=== PATIENT | male | born 1940 | race Caucasian/White ===

== ENCOUNTER 2017-09-04 08:41 | Observation (INO) | payer OTHER ==
[~2017-09-04] VITALS: Ht 180.3 cm; Wt 113.4 kg
[2017-09-04] VITALS (13 sets, daily range): BP systolic 108–153; BP diastolic 78–92
[~2017-09-04 08:41] MED LIST: ALLOPURINOL 10100 M1 PO; ASPIR 8181 MG PO; COZAAR 50 MG TA50 M2 PO; EFFIENT10 MG PO; FLONASE 0.05%50 MCG NASAL; GLUCOTROL5 MG PO; IRON325 PO; JANUVIA25 MG PO; KLOR-CON 1010 MEQ; LASIX 20 MG TAB20 MG PO; LOVASTATIN 20 M20 MG PO; NITROGLYCERIN0.4 MG SUBLING; OMEGA-31000 M1 PO; OMEPRAZOLE20 M2 PO; PLAVIX 75 MG TA75 M1; PROTONIX40 M1 PO; TOPROL XL100 MG PO; VITAMIN B-12500 MCG PO; XANAX 0.25 MG0.25 MG PO; ZANAFLEX4 MG PO
[2017-09-04 09:59] LABS: HEMATOCRIT 39.6 % (42.0-52.0); HEMOGLOBIN 13.6 gm/dL (14.0-18.0); MCHC 34.4 g/dL (28.0-37.0); MCV 87.2 fL (80.0-100.0); MPV 8.2 fl. (7.2-11.1); RBC 4.54 mil/uL (4.50-6.00); RDW-CV 14.8 % (10.5-14.5); WBC 7.3 thou/uL (4.0-11.0)
[2017-09-04 10:05] LABS: ANION GAP 9 mmol/L (7-16); BUN 34 mg/dL (7-18); CALCIUM 8.8 mg/dL (8.5-10.1); CHLORIDE 106 mmol/L (98-107); CO2 27 mmol/L (21-32); CREATININE 2.4 mg/dL (0.6-1.3); GLUCOSE 134 mg/dL (70-99); POTASSIUM 4.4 mmol/L (3.5-5.1); SODIUM 142 mmol/L (136-145)
[2017-09-04 10:06] LABS: APTT 28.7 Seconds (25.0-31.3); INR 1.1; PROTIME 10.9 Seconds (9.20-11.50)
[2017-09-04 10:17] LABS: ALBUMIN 3.8 g/dL (3.4-5.0); ALKALINE PHOSPHATASE 69 U/L (46-116); CHOLESTEROL 148 mg/dL (<200); HDL CHOLESTEROL 51 mg/dL (>40); LDL CHOLESTEROL 81 mg/dL (<100); SGOT 26 U/L (15-37); SGPT 31 U/L (30-65); TC:HDL 2.9 Ratio (Not establshd); TOTAL BILIRUBIN 0.7 mg/dL (<0.1-1.0); TOTAL PROTEIN 7.3 g/dL (6.4-8.2); TRIGLYCERIDE 83 mg/dL (<150); VLDL 17 mg/dL (<40)
[2017-09-04 10:18] LABS: SERUM ASSESSMENT Clear
--- NOTE | 2017-09-04 15:22 | EKG ---
[place] [address] ELECTROCARDIOGRAM REPORT Name: MAX ROSALES Room: [place] [address] ADM IN .R.#: [id number] Admission: 09/04/17 Attend Phys: Denny Terry MD Discharge: Date of : 44 Report #: [id number] THIS REPORT FOR: //name// [facility] Test Date: 2017-09-04 Test Time: 13:51:31 Pat Name: MAX ROSALES Department: Room: [facility] Gender: Retail Operations Specialist: IESHA : 1940 Requested By: Kavon Rea Order Number: [id number] Reading MD: Denny Terry Measurements Intervals [place] Rate: 85 P: -10 VT: 278 QRS: -75 QRSD: 153 T: 8 QT: 396 QTc: 471 Interpretive Statements Sinus rhythm Prolonged VT interval RBBB and LAFB Inferior infarct, old Compared to ECG 01/11/2015 08:44:26 Left anterior fascicular block now present Right bundle-branch block now present Myocardial infarct finding now present Left-axis deviation no longer present Electronically Signed On 09-04-2017 15:22:42 SPRAY DRIER OPERATOR HELPER by Denny Terry [email or web address] <ELECTRONICALLY SIGNED> By: Denny Terry MD, FACC 09/04/17 1522 1351 1351 Denny Terry MD, LOCATED WITHIN [facility] /EPI
--- NOTE | 2017-09-04 15:22 | EKG ---
[place] [address] ELECTROCARDIOGRAM REPORT Name: MAX ROSALES Room: [place] [address] ADM IN .R.#: [id number] Admission: 09/04/17 Attend Phys: Denny Terry MD Discharge: Date of : 44 Report #: [id number] THIS REPORT FOR: //name// [facility] Test Date: 2017-09-04 Test Time: 09:52:14 Pat Name: MAX ROSALES Department: Room: [facility] Gender: Senior Adults Director: : 1940 Requested By: Denny Terry Order Number: [id number] Reading MD: Denny Terry Measurements Intervals [place] Rate: 85 P: 19 ND: 246 QRS: -57 QRSD: 149 T: 3 QT: 399 QTc: 475 Interpretive Statements Sinus rhythm Prolonged ND interval RBBB and LAFB Baseline wander in lead(s) II,III,aVF Compared to ECG 01/11/2015 08:44:26 Left anterior fascicular block now present Right bundle-branch block now present Left-axis deviation no longer present Electronically Signed On 09-04-2017 15:22:11 RAISIN WASHER by Denny Terry [email or web address] <ELECTRONICALLY SIGNED> By: Denny Terry MD, [facility] 09/04/17 1522 0952 Denny Terry MD, [facility] /EPI
--- NOTE | 2017-09-04 16:00 | CARD ---
[address] [address] CARDIAC CATH REPORT Name: NAHUMHAYESMAX GOLDBERG Hans Room: [address] IN [facility]#: [id number] Admission: 09/04/17 Attend Phys: Denny Terry MD Discharge: Date of : 44 Report #: [id number] THIS REPORT FOR: //name// APPROVED REPORT Patient Details Patient Status: Out-Patient Room #: The patient is a 77 year-old male Event Personnel Kavon Rea Quality Rn, Denny Terry Cartographic Designer, Yee Neri RN RN, Gladis Feng RTR Monitor, Carlos Romano (R) Scrub Procedures Performed Art Access - L femoral artery Coronary Angiography Only, ULISES Place w/wo Plasty Single LAD [id number] Hemostasis w/ Angioseal Indication Unstable angina Risk Factors Hypercholesterolemia, Hypertension Previous Procedures/Diagnoses Previous PCI Admission/Lab Medications/Medications given during procedure Aspirin, Platelet Aff. Inhib., Plavix PO 600 mg, Aspirin PO 324 mg; Angiomax bolus and infusion Procedure Narrative The patient was brought electively to the Cardiac Catheterization Laboratory and was prepped and draped in a sterile manner. The left femoral was infiltrated with 1% Lidocaine subcutaneous anesthesia. A 6 Fr. [place] sheath was inserted into the LEFT. Coronary angiography was performed using coronary diagnostic catheters. The right coronary system was accessed and visualized with a 6fr JR4 catheter. The left coronary system was accessed and visualized with a 6Fr. Jl4 catheter. Pre-demployment femoral angiogram was performed . Closure device was deployed with a 6 Fr Angioseal STS 6Fr. The patient tolerated the procedure well and there were no complications associated with the procedure. There [place] [address] CARDIAC CATH REPORT Name: MAX ROSALES Room: [address]#: [id number] Admission: 09/04/17 Attend Phys: Denny Terry MD Discharge: Date of : 44 Report #: [id number] Intraoperative Conscious Sedation Fentanyl 25 mcg Dose: 2555 mGy Contrast Type and Amount: Visipaque 400 ml Diagnostic Cath Left Main 0% narrowing LAD 75-80% mid vessel stenosis with 80% tubular narrowing of the proximal portion of a small second diagonal branch Circumflex 40% tubular distal narrowing Right Coronary Dominant vessel with 40% mid vessel narrowing just beyond the previously deployed stent Left Ventriculography Left Ventriculography was not performed. Hemodynamics The aortic pressure is 142/83 mmHg with a mean of 112 mmHg. PCI Technique Lesion Anticoagulation was achieved with Angiomax. Percutaneous coronary intervention was performed on the mid left anterior descending artery segment. The lesion stenosis prior to intervention was 80% with CHING 3 flow. A 6 [place] XB 3.5 Guide Catheter was used to engage the left ostium. A 014 prowater flex Interventional Guidewire was used to cross the lesion. BALLOON DILATION A Balloon catheter 2.5 x 15 mm trek was inserted and inflated up to 14atm for 15seconds. Repeat angiography revealed the following post-dilatation results: 30% residual narrowing. STENT DEPLOYMENT A drug-eluting stent 2.75 x 23 Xience Alpine was inserted and inflated up to 16atm for 15seconds. Final angiography reveals 10 % stenosis with CHING 3 flow. Conclusion #1 significant coronary artery disease characterized by the following: A 75-80% tubular mid LAD stenosis with 80% tubular narrowing of the proximal portion of the small second diagonal branch, [place] [address] CARDIAC CATH REPORT Name: MAX ROSALES Room: [address] IN [facility]#: [id number] Admission: 09/04/17 Attend Phys: Denny Terry MD Discharge: Date of : 44 Report #: [id number] B 40% narrowing of the distal portion of the nondominant circumflex, C dominant right coronary artery with 40% mid vessel narrowing just beyond a previously deployed stent #2 successful percutaneous coronary intervention with deployment of a drug-eluting stent at site of 75-80% tubular mid LAD stenosis with 10% residual narrowing following stent deployment and CHING-3 flow to the distal vessel Recommendations Daily ASA with Plavix for at least one year Aggressive Medical Therapy Medications Administered Aspirin (any) Clopidogrel <ELECTRONICALLY SIGNED> By: Kavon Rea MD, FACC 09/04/171599 99 99Jomahin Rea MD, FACC /INF
[2017-09-05] VITALS: BP 139/85
[2017-09-05 04:03] VITALS: BP 131/80
--- NOTE | 2017-09-05 04:58 | NUR ---
ASSUMED CARE AROUND 1930. PT A/OX4 AND VERY PLEASANT, DISCUSSING LIFE AND HOW HE LIKES TO STAY BUSY. TELE MONITOR TRACING SR/ST/1D/BBB WITH HR 70-105. VSS, AFEBRILE. ON ROOM AIR. IVF INFUSING ORDERED. UP AD KENZIE. DENIED ANY PAIN. LEFT AND RIGHT GROIN SITES C/D/I, NO BLEEDING OR HEMATOMA NOTED- MINIMAL BRUISING AROUND SITE. AMBULATING IN CHAMPION TONIGHT. CALL LIGHT IN REACH, WILL CONTINUE WITH PLAN OF CARE.
[2017-09-05 05:06] LABS: HEMOGLOBIN 12.5 gm/dL (14.0-18.0); MCH 30.2 pg (26.0-34.0); WBC 8.3 thou/uL (4.0-11.0)
[2017-09-05 05:27] LABS: HEMATOCRIT 35.4 % (42.0-52.0); MCHC 35.2 g/dL (28.0-37.0); MCV 85.8 fL (80.0-100.0); MPV 8.4 fl. (7.2-11.1); RBC 4.13 mil/uL (4.50-6.00); RDW-CV 14.5 % (10.5-14.5)
[2017-09-05 05:55] LABS: ANION GAP 11 mmol/L (7-16); BUN 31 mg/dL (7-18); CALCIUM 8.4 mg/dL (8.5-10.1); CHLORIDE 105 mmol/L (98-107); CO2 25 mmol/L (21-32); CREATININE 2.3 mg/dL (0.6-1.3); GLUCOSE 104 mg/dL (70-99); POTASSIUM 4.6 mmol/L (3.5-5.1); SODIUM 141 mmol/L (136-145); TROPONIN-I LEVEL <0.06 ng/mL (<0.06)
[2017-09-05 08:00] VITALS: BP 136/81
[2017-09-05 08:06] VITALS: BP 108/85
[2017-09-05 08:54] VITALS: BP 136/81
--- NOTE | 2017-09-05 09:33 | NUR ---
RECIEVED REPORT FROM SB AND ASSUMED CARE OF PT AT 0730. PT A/O X4, VSS, TRACING FIRST DEGREE BUNDLE BRANCH ON MONITOR. FULL ASSESSMENT COMPLETED REFER TO CHARTING. PT DENIES PAIN AND IS CALM AND COOPERATIVE BUT ANTICIPATES DISCHARGING HOME TODAY. PT LEFT SITTING IN CHAIR WITH CALL LIGHT IN REACH. PT SEEN BY CHUCKING LATHE OPERATOR AND WILL BE DISCHARGED HOME LATER TODAY.
[2017-09-05] MEDS ORDERED: PLAVIX 75 MG TA75 M1 PO (09:58)
--- NOTE | 2017-09-05 11:27 | NUR ---
DISCHARGE PAPERWORK GONE OVER AND GIVEN TO PT WITH SCRIPTS.IV AND HEART MONITOR REMOVED.ALL PERSONAL BELONGINGS TAKEN HOME WITH PT.PT WALKED OUT AT 1115.
--- NOTE | 2017-09-06 12:39 | EKG ---
[place] [address] ELECTROCARDIOGRAM REPORT Name: MAX ROSALES JR Room: [address]#: [id number] Admission: 09/04/17 Attend Phys: Denny Terry MD Discharge: 09/05/17 Date of : 44 Report #: [id number] THIS REPORT FOR: //name// [facility] Test Date: 2017-09-05 Test Time: 08:29:06 Pat Name: MAX ROSALES Department: Room: [facility] Gender: M Marketing Automation Specialist: : 1940 Requested By: Kavon Rea Order Number: [id number] Reading MD: Oz Winn Measurements Intervals [place] Rate: 83 P: 19 NC: 239 QRS: -69 QRSD: 151 T: 3 QT: 389 QTc: 457 Interpretive Statements Sinus rhythm Prolonged [place] interval Right bundle branch block Compared to ECG 09/04/2017 13:51:31 Left anterior fascicular block no longer present Myocardial infarct finding no longer present Electronically Signed On 09-06-2017 12:39:49 SALES ADMINISTRATION SPECIALIST by Oz Winn [email or web address] <ELECTRONICALLY SIGNED> By: Oz Winn MD, FACC 09/06/17 1239 Oz Winn MD, [facility] /EPI
--- NOTE | 2017-09-08 10:48 | D ---
[address] [address] DISCHARGE SUMMARY Name: KALA ROSALESRY Hans MANUEL Room: [address] Yadi Gilman#: [id number] Admission: 09/04/17 Attend Phys: Denny Terry MD Discharge: 09/05/17 Date of : 44 Report #: [id number] THIS REPORT FOR: //name// CC: Allegra Terry DATE OF SERVICE: 09/05/2017 FINAL DISCHARGE DIAGNOSES: 1. Angina. 2. Abnormal nuclear stress test. 3. Significant coronary artery disease. 4. Status post percutaneous coronary intervention with deployment of drug-eluting stent at site of 80% tubular and mid LAD stenosis. 5. Hyperlipoproteinemia. 6. Hypertension. 7. Mild aortic stenosis. PROCEDURES: 09/04/2017 -- selective coronary arteriography with percutaneous coronary intervention and deployment of a drug-eluting stent at site of 80% tubular mid LAD stenosis. The patient is a very pleasant 77-year-old male who has had episodes of recent chest pain suggestive of angina. He underwent prior stenting of the right coronary artery. Recent nuclear stress test was abnormal, and the patient was heart catheterized in that context. He has underlying hyperlipoproteinemia, hypertension, mild aortic stenosis and weight excess. Cardiac catheterization revealed 80% tubular mid LAD stenosis, with 80% stenosis of a small second diagonal branch. There was 40% mid right coronary stenosis beyond the previously deployed stent. Given this data, I performed percutaneous coronary intervention with deployment of a 2.75 x 23 mm Xience Alpine drug-eluting stent in the mid LAD, with 10% residual narrowing and CHING 3 flow of the distal vessel. There was no compromise of the diagonal that emanated from this region. The patient did well post-procedurally. There was good healing of the femoral site of catheterization. LABORATORY DATA: On 09/05 revealed sodium 141, potassium 4.6; BUN 31, down from 34; creatinine 2.3, down from 2.4. Glucose 104. White blood cell count 8300, hemoglobin 12.5, platelet count 138,000, hematocrit 35.4. Cholesterol 148, triglycerides 83, HDL 51, LDL 81 [place] [address] DISCHARGE SUMMARY Name: MAX ROSALES Room: [address] Yadi Gilman#: [id number] Admission: 09/04/17 Attend Phys: Denny Terry MD Discharge: 09/05/17 Date of : 44 Report #: [id number] The patient ambulated in the hallways without difficulty. He was discharged to home in stable condition on 09/05/2017 on the following medications: Allopurinol 100 mg daily, aspirin 81 mg daily, cyanocobalamin or vitamin B12 of 50 mcg daily, glipizide 5 mg daily, losartan 100 mg daily, lovastatin 20 mg daily, metoprolol succinate 100 mg daily, omega-3 fatty acids 1000 mg daily, pantoprazole 40 mg daily, Januvia 25 mg daily, furosemide 20 mg on a p.r.n. basis and p.r.n. sublingual nitroglycerin. The patient is scheduled to return to see Dr. Terry at [facility] office on 10/01/2017 at 10:45 hours. Thus, the patient is discharged to home in stable condition on the aforementioned medications with followup as outlined above. <ELECTRONICALLY SIGNED> By: Kavon Rea MD, FACC 09/08/17 1048 0933 1003Jomahin Rea MD, FAC /nt
== END 2017-09-05 11:14 | disposition home or self-care (01) ==
LOC: M.CL 08:41 → M.2W 12:39 → M.TBA-CV 12:39 → M.2W 12:39 → M.CL 13:00 → M.2W 13:02
PROVIDERS: Internal Medicine; ADMIT Internal Medicine Cardiovascular Disease
DX: I25.119 Atherosclerotic heart disease of native coronary artery with unspecified angina pectoris (principal); I35.0 Nonrheumatic aortic (valve) stenosis; E78.00 Pure hypercholesterolemia, unspecified; I10 Essential (primary) hypertension; E78.5 Hyperlipidemia, unspecified; Z95.5 Presence of coronary angioplasty implant and graft

== ENCOUNTER 2018-02-17 12:28 | Emergency (ER) | payer OTHER ==
[~2018-02-17] VITALS: Ht 180.3 cm; Wt 116.6 kg
[~2018-02-17 12:28] MED LIST changes: +PLAVIX 75 MG TA75 M1 PO
[2018-02-17 13:22] LABS: ABSOLUTE EOSINOPHILS 0.3 thou/uL (0.0-0.7); ABSOLUTE LYMPHOCYTES 1.3 thou/uL (0.8-5.3); ABSOLUTE NEUTROPHILS 5.1 thou/uL (1.6-8.1); BASOPHILS 0.5 %; EOSINOPHILS 4.3 %; HEMATOCRIT 38.4 % (42.0-52.0); HEMOGLOBIN 13.1 gm/dL (14.0-18.0); LYMPHOCYTES 16.8 %; MCHC 34.2 g/dL (28.0-37.0); MCV 87.7 fL (80.0-100.0); MONOCYTES 12.7 %; MPV 8.2 fl. (7.2-11.1); NUCLEATED RBCS 0 /100WBC; PLATELET COUNT* 157 thou/uL (150-400); POLYS 65.7 %; RBC 4.37 mil/uL (4.50-6.00); RDW-CV 15.6 % (10.5-14.5); WBC 7.7 thou/uL (4.0-11.0)
[2018-02-17 13:38] LABS: APTT 28.9 Seconds (25.0-31.3); INR 1.1; PROTIME 10.7 Seconds (9.20-11.50)
[2018-02-17 13:39] LABS: ANION GAP 7 mmol/L (7-16); BUN 34 mg/dL (7-18); CALCIUM 8.8 mg/dL (8.5-10.1); CHLORIDE 104 mmol/L (98-107); CO2 26 mmol/L (21-32); CREATININE 2.4 mg/dL (0.6-1.3); GLUCOSE 155 mg/dL (70-99); POTASSIUM 4.3 mmol/L (3.5-5.1); SODIUM 137 mmol/L (136-145)
[2018-02-17 13:50] LABS: ALBUMIN 3.6 g/dL (3.4-5.0); ALKALINE PHOSPHATASE 62 U/L (46-116); MAGNESIUM 1.5 mg/dL (1.8-2.4); NT-PRO BRAIN NAT PEPTIDE 90 pg/mL (<300); SGOT 22 U/L (15-37); SGPT 28 U/L (30-65); TOTAL BILIRUBIN 0.4 mg/dL (<0.1-1.0); TOTAL PROTEIN 6.7 g/dL (6.4-8.2); TROPONIN-I LEVEL <0.06 ng/mL (<0.06)
[2018-02-17 16:09] VITALS: BP 151/98
--- NOTE | 2018-02-18 10:37 | EKG ---
[place] [address] ELECTROCARDIOGRAM REPORT Name: MAX ROSALES JR Room: [facility]#: [id number] Admission: 02/17/18 Attend Phys: Discharge: 02/17/18 Date of : 44 Report #: [id number] THIS REPORT FOR: //name// [facility] ED Test Date: 2018-02-17 Test Time: 12:35:13 Pat Name: MAX SIDHUHAYESYUSUF Department: Room: Gender: Ocean Export Agent: Gema GUTIERREZ : 1940 Requested By: Aracelis Jeffers Order Number: [id number] MD: Alvino Mitchell Measurements Intervals [place] Rate: 93 P: 3 NV: 238 QRS: -75 QRSD: 152 T: 14 QT: 378 QTc: 471 Interpretive Statements Sinus rhythm Prolonged [place] interval RBBB and LAFB Compared to ECG 09/05/2017 08:29:06 no change Electronically Signed On 02-18-2018 10:37:31 CDT by Alvino Mitchell [email or web address] <ELECTRONICALLY SIGNED> By: Alvino Mitchell MD, [facility] 02/18/18 1037 1235 1235 Alvino Mitchell MD, [facility] /EPI
== END 2018-02-17 16:10 | disposition home or self-care (01) ==
LOC: M.ERS 12:28
PROVIDERS: Personal Emergency Response Attendant
DX: R20.2 Paresthesia of skin (principal); E78.5 Hyperlipidemia, unspecified; F41.9 Anxiety disorder, unspecified; E11.22 Type 2 diabetes mellitus with diabetic chronic kidney disease; I12.9 Hypertensive chronic kidney disease with stage 1 through stage 4 chronic kidney disease, or unspecified chronic kidney disease; N18.3 Chronic kidney disease, stage 3 (moderate)

== ENCOUNTER → 2018-12-24 | Outpatient (CLI) | payer OTHER ==
[~2018-12-24] VITALS: Ht 180.3 cm; Wt 115.2 kg
[2018-12-24 08:00] LABS: HEMATOCRIT 40.3 % (42.0-52.0); MCHC 34.9 g/dL (28.0-37.0); MCV 86.1 fL (80.0-100.0); RBC 4.68 mil/uL (4.50-6.00); RDW-CV 15.2 % (10.5-14.5); WBC 7.4 thou/uL (4.0-11.0)
[2018-12-24 08:07] LABS: ANION GAP 8 mmol/L (7-16); BUN 30 mg/dL (7-18); CALCIUM 9.7 mg/dL (8.5-10.1); CHLORIDE 107 mmol/L (98-107); CO2 29 mmol/L (21-32); CREATININE 2.3 mg/dL (0.6-1.3); GLUCOSE 144 mg/dL (70-99); POTASSIUM 4.4 mmol/L (3.5-5.1); SODIUM 144 mmol/L (136-145)
[2018-12-24 08:12] LABS: ALBUMIN 3.8 g/dL (3.4-5.0); ALKALINE PHOSPHATASE 79 U/L (46-116); CHOLESTEROL 153 mg/dL (<200); HDL CHOLESTEROL 48 mg/dL (>40); LDL CHOLESTEROL 92 mg/dL (<100); SERUM ASSESSMENT Clear; SGOT 20 U/L (15-37); SGPT 28 U/L (30-65); TC:HDL 3.2 Ratio (Not establshd); TOTAL BILIRUBIN 0.7 mg/dL (<0.1-1.0); TOTAL PROTEIN 7.5 g/dL (6.4-8.2); TRIGLYCERIDE 68 mg/dL (<150); VLDL 14 mg/dL (<40)
[2018-12-24 08:21] VITALS: BP 145/85
[2018-12-24 08:26] LABS: APTT 28.9 Seconds (25.0-31.3); INR 1.1
[2018-12-24 11:23] VITALS: BP 131/82
--- NOTE | 2018-12-24 11:36 | EKG ---
[place] [address] ELECTROCARDIOGRAM REPORT Name: MAX ROSALES JR Room: [facility]#: [id number] Admission: 12/24/18 Attend Phys: Denny Terry MD Discharge: Date of : 44 Report #: [id number] THIS REPORT FOR: //name// [facility] Test Date: 2018-12-24 Test Time: 07:53:16 Pat Name: MAX BOBBY Department: Room: Gender: Field Producer: : 1940 Requested By: Denny Terry Order Number: [id number] Reading MD: Denny Terry Measurements Intervals [place] Rate: 69 P: 12 CO: 236 QRS: -69 QRSD: 153 T: 49 QT: 419 QTc: 449 Interpretive Statements Sinus rhythm Prolonged [place] interval RBBB and LAFB Baseline wander in lead(s) II,III,aVF Compared to ECG 02/17/2018 12:35:13 No significant changes Electronically Signed On 12-24-2018 11:36:14 CDT by Denny Terry [email or web address] <ELECTRONICALLY SIGNED> By: Denny Terry MD, FAC 12/24/18 1136 0753 0753 Denny Terry MD, FAC /EPI
[2018-12-24 11:58] VITALS: BP 129/86
--- NOTE | 2018-12-25 15:40 | CARD ---
[address] [address] CARDIAC CATH REPORT Name: MAX ROSALES JR Room: [facility]#: [id number] Admission: 12/24/18 Attend Phys: Denny Terry MD Discharge: Date of : 44 Report #: [id number] THIS REPORT FOR: //name// APPROVED REPORT Study performed: 12/24/2018 08:03:58 Patient Details Patient Status: Out-Patient Room #: The patient is a 78 year-old male Event Personnel Denny Terry Cnc Maintenance Mechanic, Tiffany Call RN Maternal Child Nurse, Carlos Romano (R) Monitor, Manjeet Urias BUNDLE PERSON Scrub Procedures Performed Left Heart Cath w/or w/o Coronaries Procedure Narrative A [place] 6 FR sheath was inserted into the right femoral artery. Coronary angiography was performed using coronary diagnostic catheters. The right coronary system was accessed and visualized with a Diagnostic JR4 catheter. The left coronary system was accessed and visualized with a Diagnostic JL4 catheter. Closure device was deployed with a 6 Fr Mynx. The patient tolerated the procedure well and there were no complications associated with the procedure. Intraoperative Conscious Sedation Sedation start time: 10:45 Case end Time: 11:04 Fentanyl 50 mcg Versed 2 mg Fluoro Time: 2.9 minutes Dose: DAP 05319 cGycm2 1226 mGy Contrast Type and Amount: Visipaque 100 ml Diagnostic Cath Left Main large, normal LAD LAD stent widely patent,30% ISR, tortuous mid body, mild disease 30%, apical lad is normal Diagonal 1 medium sized, 95% proximal stenosis Circumflex normal [place] [address] CARDIAC CATH REPORT Name: MAX ROSALES JR Room: [facility]#: [id number] Admission: 12/24/18 Attend Phys: Denny Terry MD Discharge: Date of : 44 Report #: [id number] OM2 proximal 85-80% stenosis of inferior branch of om1 OM3 small normal Right Coronary long stented region , mid body 40-50% R PDA normal RPLV normal Left Ventriculography Left Ventriculography was not performed. right dominant Hemodynamics The aortic pressure is 126/71 mmHg with a mean of 91 mmHg. Conclusion 1. patent stents in RCA , proximal LAD 2. severe branch vessel disease in medium sized diagnonal and non dominant lcx om 3. severe aortic stenosis Recommendations AVR <ELECTRONICALLY SIGNED> By: Denny Terry MD, [facility] 12/25/18 1539 1539 1539Denny Terry MD, FACC /INF
== END | disposition home or self-care (01) ==
LOC: M.CL 07:16
PROVIDERS: Internal Medicine Cardiovascular Disease
DX: I25.10 Atherosclerotic heart disease of native coronary artery without angina pectoris (principal); I35.0 Nonrheumatic aortic (valve) stenosis; I12.9 Hypertensive chronic kidney disease with stage 1 through stage 4 chronic kidney disease, or unspecified chronic kidney disease; E11.22 Type 2 diabetes mellitus with diabetic chronic kidney disease; N18.3 Chronic kidney disease, stage 3 (moderate); E78.5 Hyperlipidemia, unspecified; F41.9 Anxiety disorder, unspecified; Z87.442 Personal history of urinary calculi; Z98.890 Other specified postprocedural states; Z79.82 Long term (current) use of aspirin; Z79.899 Other long term (current) drug therapy